=== PATIENT | female | born 1960 ===

== ENCOUNTER → 2021-03-25 13:00 | Outpatient (BNVA) | payer MEDICARE, MEDICAID, SELFPAY | PROVIDERS: Family Provider Family Medicine; PCP Family Medicine; Visit Provider Internal Medicine | DX: M32.9 Systemic lupus erythematosus, unspecified (principal); Z11.59 Encounter for screening for other viral diseases; Z11.1 Encounter for screening for respiratory tuberculosis; Z79.899 Other long term (current) drug therapy; D86.9 Sarcoidosis, unspecified | CPT/HCPCS: 36415; 80053; 81003; 82550; 82784; 83516; 83540; 84439; 84443; 85025; 85651; 86038; 86140; 86160; 86162; 86235; 86255; 86376; 86431; 86480; 86704; 86803; 87340; 99204 ==

== ENCOUNTER → 2021-09-17 12:42 | Outpatient (BNVA) | payer MEDICARE, MEDICAID, SELFPAY | PROVIDERS: Family Provider Family Medicine; PCP Family Medicine; Visit Provider Internal Medicine | DX: M32.9 Systemic lupus erythematosus, unspecified (principal); R74.01 Elevation of levels of liver transaminase levels | CPT/HCPCS: 99214 ==

== ENCOUNTER → 2024-04-18 15:16 | Outpatient (BNVA) | payer MEDICARE, MEDICAID, SELFPAY | PROVIDERS: Family Provider Family Medicine; Visit Provider Nurse Practitioner Family | DX: L08.9 Local infection of the skin and subcutaneous tissue, unspecified (principal); L23.9 Allergic contact dermatitis, unspecified cause; L82.1 Other seborrheic keratosis; L81.4 Other melanin hyperpigmentation | CPT/HCPCS: 99203 ==

== ENCOUNTER → 2024-09-06 11:00 | Outpatient (BNVA) | payer MEDICARE, MEDICAID, SELFPAY | PROVIDERS: Family Provider Family Medicine; Visit Provider Internal Medicine Rheumatology | DX: M32.9 Systemic lupus erythematosus, unspecified (principal); Z79.899 Other long term (current) drug therapy; M35.01 Sjogren syndrome with keratoconjunctivitis; M15.9 Polyosteoarthritis, unspecified | CPT/HCPCS: 36415; 80076; 82565; 85025; 85651; 86140; 99214; 99215 ==

== ENCOUNTER → 2024-11-02 13:46 | Outpatient (BNVA) | payer MEDICARE, MEDICAID, SELFPAY | PROVIDERS: Family Provider Family Medicine; Visit Provider Family Medicine | DX: M32.9 Systemic lupus erythematosus, unspecified (principal); R25.2 Cramp and spasm | CPT/HCPCS: 80048; 80053; 83735; 84439; 84443 ==

== ENCOUNTER → 2025-03-22 14:06 | Outpatient (BNVA) | payer MEDICARE, MEDICAID, SELFPAY | PROVIDERS: Family Provider Family Medicine; Visit Provider Nurse Practitioner Family | DX: L29.89 Other pruritus (principal); L21.8 Other seborrheic dermatitis; L81.5 Leukoderma, not elsewhere classified | CPT/HCPCS: 99214 ==

== ENCOUNTER → 2025-06-14 14:22 | Outpatient (BNVA) | payer MEDICARE, MEDICAID, SELFPAY | PROVIDERS: PCP Family Medicine; Visit Provider Family Medicine | DX: M32.9 Systemic lupus erythematosus, unspecified (principal); M15.9 Polyosteoarthritis, unspecified; E66.811 Obesity, class 1; R73.01 Impaired fasting glucose; Z79.899 Other long term (current) drug therapy | CPT/HCPCS: 80053; 83036; 84439; 84443; 85025; 86140 ==